=== PATIENT | female | born 1995 | race Caucasian/White ===

== ENCOUNTER 2018-02-21 13:30 | Emergency (ER) | payer MEDICAID ==
[2018-02-21 13:43] VITALS: BP 141/86
--- NOTE | 2018-02-21 14:25 | CR ---
Hand Comp Min 3V Rt CLINICAL HISTORY: Interval second finger FINDINGS: There is no acute fracture or dislocation of the hand. Articular surfaces are smooth. Impression: Negative
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
== END 2018-02-21 14:51 | disposition home or self-care (01) ==
LOC: JP.ED 13:30
DX: S60.221A Contusion of right hand, initial encounter (principal); Z77.22 Contact with and (suspected) exposure to environmental tobacco smoke (acute) (chronic); E03.9 Hypothyroidism, unspecified; F32.9 Major depressive disorder, single episode, unspecified; Z79.899 Other long term (current) drug therapy; W22.8XXA Striking against or struck by other objects, initial encounter
CPT/HCPCS: 73130-26-RT; 73130-RT; 99284

== ENCOUNTER 2020-07-07 15:46 | Emergency (ER) | payer SELFPAY ==
[2020-07-07 16:11] VITALS: BP 155/112; PULSE 118
--- NOTE | 2020-07-07 16:42 | EDM.PDOC ---
ED HPI GENERAL MEDICAL PROBLEM - General Chief Complaint: Flank Pain Stated Complaint: RIGHT SIDE PAIN Time Seen by Provider: 07/07/20 16:30 Source of Information: Reports: Patient, RN Notes Reviewed - History of Present Illness INITIAL COMMENTS - FREE TEXT/NARRATIVE: Patient presents to the ED with 2 day hx of progressive right flank pain, mild dysuria, denies barbara hematuria, fever, injury or trauma, pain mildly improved with Ibuprofen, worse with certain activities, strong ache in nature. No vomiting, drinking fluids well. Denies UTI/Pyelonephritis hx. Onset: Gradual Duration: Day(s): (2) Right Flank Pain Score (Numeric/FACES): 8 - Related Data Allergies Allergy/AdvReac Type Severity Reaction Status Date / Time No Known Allergies Allergy Verified 07/07/20 16:18 Home Meds: Home Meds Levothyroxine Sodium 112 mcg PO DAILY 10/27/15 [History] Albuterol [IMW: Albuterol HFA] 1 puff INH ASDIRECTED PRN 02/21/18 [History] Amitriptyline [Elavil] 25 mg PO DAILY 02/21/18 [History] lamoTRIgine [Lamotrigine] 150 mg PO DAILY 02/21/18 [History] Past Medical History Musculoskeletal History: Reports: Back Pain, Chronic Psychiatric History: Reports: Depression Endocrine/Metabolic History: Reports: Hypothyroidism - Past Surgical History Musculoskeletal Surgical History: Reports: Other (See Below) Other Musculoskeletal Surgeries/Procedures:: ankle fx Social & Family History - Tobacco Use Smoking Status *Q: Never Smoker - Caffeine Use Caffeine Use: Reports: Coffee ED ROS GENERAL - Review of Systems Review Of Systems: Comprehensive ROS is negative, except as noted in HPI. ED EXAM, RENAL/ - Physical Exam Exam: See Below Exam Limited By: No Limitations General Appearance: Alert, WD/WN, No Apparent Distress Throat/Mouth: Normal Inspection Head: Atraumatic Neck: Supple Respiratory/Chest: No Respiratory Distress, Lungs Clear, Normal Breath Sounds Cardiovascular: Regular Rate, Rhythm, Other (Heart rate 88 on my exam) GI/Abdominal: Normal Bowel Sounds, Soft, Tender (right CVA wrapping around to right upper quadrant) Back Exam: Normal Inspection, CVA Tenderness (R) Extremities: Normal Inspection Neurological: Alert, Oriented, CN II-XII Intact Psychiatric: Normal Affect Skin Exam: Warm, Dry, Intact Course - Vital Signs Last Recorded V/S: Last Vital Signs Temp 36.9 C 07/07/20 16:17 Pulse 118 H 07/07/20 16:17 Resp 18 07/07/20 16:17 BP 155/112 H 07/07/20 16:17 Pulse Ox 96 07/07/20 16:17 Rosi is a 25 year old female, presents with 2 day hx of right flank pain, please refer to HPI and focused exam. Patient's UA consistent with infection, likely pyelonephritis, patient tachycardic on arrival, this resolved with rest, afebrile, in no acute distress, well hydrated and non toxic appearing, there is microscopic hematuria so CT scan obtained to rule out stone and is negative. UC pending, Urine HCG negative (patient has Nexplanon). Will start patient on Omnicef pending culture. Instructed to stay well hydrated, return with any worsening symptoms. Patient agreeable to plan of care and discharged in stable condition. - Orders/Labs/Meds Orders: Active Orders 24 hr Category Date Time Status CULTURE URINE [RM] Stat Lab 07/07/20 16:58 Received Labs: Laboratory Tests 07/07/20 07/07/20 Range/Units 16:26 16:26 Urine Color Yellow (YELLOW) Urine Appearance Cloudy A (CLEAR) Urine pH 5.5 (5.0-8.0) Ur Specific [place] >= 1.030 (1.008-1.030) Urine Protein 100 H (NEGATIVE) mg/dL Urine Glucose (UA) Negative (NEGATIVE) mg/dL Urine Ketones Negative (NEGATIVE) mg/dL Urine Occult Blood Moderate H (NEGATIVE) Urine Nitrite Negative (NEGATIVE) Urine Bilirubin Negative (NEGATIVE) Urine Urobilinogen 0.2 (0.2-1.0) EU/dL Ur Leukocyte Esterase Small H (NEGATIVE) Urine RBC Semi-packed H (0-5) Urine WBC Packed H (0-5) Ur Epithelial Cells Many Amorphous Sediment Moderate Urine Bacteria Many Urine Mucus Few Urine HCG, Qual Negative Departure - Departure Time of Disposition: 18:00 Disposition: Home, Self-Care 01 Condition: Good Clinical Impression: UTI, Urinary tract infectious disease, Pyelonephritis - Discharge Information Instructions: Pyelonephritis, Adult, [id number] Referrals: PCP,None [Primary Care Provider] - Forms: ED Department Discharge Additional Instructions: Your CT scan was negative for a kidney stone. You have a kidney infection. Start the antibiotics I have prescribed this evening and take as directed. You can continue Ibuprofen for pain, up to 600 mg every 6 hours, which can be alternated with Tylenol 650 mg every 4 hours as needed. Make sure you are staying well hydrated. If you develop any worsening symptoms such as fever or nausea/vomiting/body aches, please return here. Sepsis Event Note (ED) - Evaluation Sepsis Screening Result: No Definite Risk - Focused Exam Vital Signs: Vital Signs Temp Pulse Resp BP Pulse Ox 07/07/20 16:17 36.9 C 118 H 18 155/112 H 96 07/07/20 16:09 36.9 C 118 H 18 155/112 H 96 - My Orders Last 24 Hours: My Active Orders 07/07/20 16:58 CULTURE URINE [RM] Stat - Assessment/Plan Last 24 Hours: My Active Orders 07/07/20 16:58 CULTURE URINE [RM] Stat
--- NOTE | 2020-07-07 17:42 | CRLCT ---
INDICATION: Right flank pain, hematuria TECHNIQUE: CT Abdomen and pelvis without i.v. contrast. Coronal and sagittal reformats were obtained. COMPARISON: None FINDINGS: Lower chest: Unremarkable. Liver: Unremarkable. Spleen: Unremarkable. Pancreas: Unremarkable. Gallbladder: Unremarkable. Kidney: Unremarkable. No kidney or ureteral stones or obstruction seen. Adrenal: Unremarkable. Bowel: Unremarkable. The appendix is normal in appearance and size. Vascular: Unremarkable. Lymph: Unremarkable. Peritoneum: Unremarkable. No pneumoperitoneum is seen. No significant ascites is noted. Pelvis: Unremarkable. Soft tissue: Unremarkable. Bone: Unremarkable for age. IMPRESSION: 1. Unremarkable with no CT correlate for the patient`s symptoms seen. Dictated by Neto Watson MD @ 07/07/2020 5:40:18 PM Please note that all CT scans at this facility use dose modulation, iterative reconstruction, and/or weight-based dosing when appropriate to reduce radiation dose to as low as reasonably achievable. Dictated by: Neto Watson MD @ 07/07/2020 17:40:40 (Electronically Signed)
== END 2020-07-07 18:54 | disposition home or self-care (01) ==
LOC: JP.ED 15:46
DX: N39.0 Urinary tract infection, site not specified (principal); N12 Tubulo-interstitial nephritis, not specified as acute or chronic; F32.9 Major depressive disorder, single episode, unspecified; E03.9 Hypothyroidism, unspecified; Z79.899 Other long term (current) drug therapy
CPT/HCPCS: 74176; 81001; 81025; 87086; 99284-25

== ENCOUNTER 2021-07-04 17:32 | Emergency (ER) | payer SELFPAY ==
[2021-07-04] MEDS ORDERED: Bacitracin Oint 1 GM U/D Packet TOP ONE (17:57)
[2021-07-04 18:05] VITALS: BP 141/67; PULSE 93
[2021-07-04] MEDS ORDERED: Diphtheria,Pertussis(Acell),Tetanus Vaccine 0.5 ML Syringe IM ONE (18:06)
--- NOTE | 2021-07-04 18:23 | EDM.PDOC ---
ED HPI GENERAL MEDICAL PROBLEM - General Chief Complaint: Bite:Animal, Insect Stated Complaint: DOG BITE Time Seen by Provider: 07/04/21 17:57 Source of Information: Reports: Patient History Limitations: Reports: No Limitations - History of Present Illness INITIAL COMMENTS - FREE TEXT/NARRATIVE: Rosi is a 26-year-old female presenting to the ED for evaluation of a dog bite to both hands that occurred when she was trying to separate 2 of her 3 dogs that were not enjoying each other's company. Her dogs are up-to-date on their vaccinations and she was last updated with her Tdap booster in 2017. Patient is complaining of some numbness in the right fifth finger which is alongside of a puncture wound over the distal interface between the fourth and fifth metacarpals. There is significant bruising and swelling on the dorsal hand. She also has a another puncture wound on the volar distal right wrist over the radius which is also in close proximity to the radial nerve. On the left hand she has 2 small superficial lacerations on the webbing between the thumb and the index finger that do not appear to have penetrated the dermis. She has intact range of motion of both the hands. Right Hand Pain Score (Numeric/FACES): 6 - Related Data Allergies Allergy/AdvReac Type Severity Reaction Status Date / Time No Known Allergies Allergy Verified 07/04/21 18:09 Home Meds: Home Meds NK [No Known Home Meds] 07/04/21 [History] Past Medical History HEENT History: Reports: Impaired Vision Genitourinary History: Reports: Pyelonephritis Musculoskeletal History: Reports: Back Pain, Chronic Psychiatric History: Reports: Depression Endocrine/Metabolic History: Reports: Hypothyroidism - Past Surgical History Musculoskeletal Surgical History: Reports: Other (See Below) Other Musculoskeletal Surgeries/Procedures:: ankle fx Social & Family History - Tobacco Use Tobacco Use Status *Q: Never Tobacco User - Caffeine Use Caffeine Use: Reports: Coffee, Soda, Tea - Recreational Drug Use Recreational Drug Use: No ED ROS GENERAL - Review of Systems Review Of Systems: See Below Constitutional: Reports: No Symptoms Musculoskeletal: Reports: Hand Pain Skin: Reports: Wound (Puncture wound on the dorsal right hand between the distal fourth and fifth metacarpals, on the volar right wrist over the radius and then superficial lacerations on the webbing of the left hand between the thumb and index finger.) Neurological: Reports: Numbness (Right fifth finger) ED EXAM, ANIMAL BITE - Physical Exam Exam: See Below Exam Limited By: No Limitations General Appearance: Alert, No Apparent Distress Extremities: Normal Range of Motion, Normal Capillary Refill, Other (0.6 cm puncture wound on the dorsal right hand between the distal fourth and fifth metacarpals, 0.6 cm puncture wound on the volar distal right wrist over the radius, 2 superficial lacerations on the webbing of the left hand between the thumb and index finger measuring a total of 0.2 cm.) Neurological: Alert, Oriented, Normal Cognition, No Motor/Sensory Deficits Skin Exam: Ecchymosis (Bruising around both puncture wounds. Swelling.) ED ANIMAL BITE PROCEDURES - Laceration/Wound Repair Right Hand Lac/Wound Length In cm: 0.6 Appearance: Subcutaneous Distal NVT: Neuro & Vascular Intact Anesthetic Type: Local Local Anesthesia - Lidocaine (Xylocaine): 1% Plain Local Anesthetic Volume: 2cc Skin Prep: Chlorhexidine (Hibiciens) Exploration/Debridement/Repair: Wound Explored, In a Bloodless Field, Explored to Base Closed With: Sutures Suture Size: 5-0 # of Sutures: 1 Suture Type: Nylon, Interrupted Sterile Dressing Applied: Nurse Tetanus Status Addressed: Yes Right Wrist Lac/Wound Length In cm: 0.6 Appearance: Subcutaneous Anesthetic Type: Local Local Anesthesia - Lidocaine (Xylocaine): 1% Plain Local Anesthetic Volume: 2cc Skin Prep: Chlorhexidine (Hibiciens) Exploration/Debridement/Repair: Wound Explored, In a Bloodless Field, Explored to Base Closed With: Sutures Suture Size: 5-0 # of Sutures: 2 Suture Type: Nylon, Interrupted Sterile Dressing Applied: Nurse Tetanus Status Addressed: Yes Complications: No Course - Vital Signs Last Recorded V/S: Last Vital Signs Temp 36.6 C 07/04/21 18:06 Pulse 93 07/04/21 18:06 Resp 18 07/04/21 18:06 BP 141/67 H 07/04/21 18:06 Pulse Ox 100 07/04/21 18:06 - Orders/Labs/Meds Meds: Medications Discontinued Medications Generic Name Dose Route Start Last Admin Trade Name Freq PRN Reason Stop Dose Admin Bacitracin 1 dose 07/04/21 17:57 Bacitracin Oint 1 Gm U/D Packet TOP 07/04/21 17:58 ONETIME ONE Diphtheria/Tetanus/Acell Pertussis 0.5 ml 07/04/21 18:06 07/04/21 18:51 Diphtheria,Pertussis(Acell),Tetanus Vaccine 0.5 Ml Syringe IM 07/04/21 18:07 Not Given .ONCE ONE Lidocaine HCl 5 ml 07/04/21 17:57 Lidocaine 1% 5 Ml Sdv INJECT 07/04/21 17:58 ONETIME ONE - Re-Assessments/Exams Free Text/Narrative Re-Assessment/Exam: 07/04/21 19:03 patient has 2 significant puncture wounds one in the dorsal right hand and the other on the volar right wrist. These uniformly become infected so we will put her on Augmentin 875 mg twice daily for 7 days. The sutures will need to be removed in 7 to 10 days. She may come to the clinic or ER to have these removed. We did discuss watching for signs of infection and if it becomes too bad she may need to have the sutures removed to allow the wounds to drain. Indications return to the ED were discussed. All questions were answered and she was discharged in satisfactory condition. Departure - Departure Time of Disposition: 19:04 Disposition: Home, Self-Care 01 Clinical Impression: Dog bite of right hand Qualifiers: Encounter type: initial encounter Qualified Code(s): S61.451A - Open bite of right hand, initial encounter; W54.0XXA - Bitten by dog, initial encounter Dog bite of right wrist Qualifiers: Encounter type: initial encounter Qualified Code(s): S61.551A - Open bite of right wrist, initial encounter; W54.0XXA - Bitten by dog, initial encounter - Discharge Information Instructions: Animal Bite, Adult, [id number] Referrals: PCP,None [Primary Care Provider] - Forms: ED Department Discharge Care Plan Goals: Because dog bites almost uniformly become infected, we are starting you on an antibiotic called Augmentin 875 mg twice daily for 7 days. The sutures placed will need to be removed in 7 to 10 days which can be done either at the clinic or here in the ER. This typically does not require an appointment to have them removed. Should you have significant drainage from the wounds, the sutures may need to be removed sooner to allow for proper drainage. Please let us know as we may need to adjust medications for the infection. These keep the wounds clean and dry for the next 24 hours until the scab forms. Sepsis Event Note (ED) - Evaluation Sepsis Screening Result: No Definite Risk - Focused Exam Vital Signs: Vital Signs Temp Pulse Resp BP Pulse Ox 07/04/21 18:06 36.6 C 93 18 141/67 H 100 07/04/21 18:03 36.6 C 93 18 141/67 H 100 - Problem List & Annotations (1) Dog bite of right hand SNOMED Code(s): 316654498 Code(s): S61.451A - OPEN BITE OF RIGHT HAND, INITIAL ENCOUNTER; W54.0XXA - BITTEN BY DOG, INITIAL ENCOUNTER Status: Acute Priority: Medium Current Visit: Yes Qualifiers: Encounter type: initial encounter Qualified Code(s): S61.451A - Open bite of right hand, initial encounter; W54.0XXA - Bitten by dog, initial encounter (2) Dog bite of right wrist SNOMED Code(s): 688799617 Code(s): S61.551A - OPEN BITE OF RIGHT WRIST, INITIAL ENCOUNTER; W54.0XXA - BITTEN BY DOG, INITIAL ENCOUNTER Status: Acute Priority: Medium Current Visit: Yes Qualifiers: Encounter type: initial encounter Qualified Code(s): S61.551A - Open bite of right wrist, initial encounter; W54.0XXA - Bitten by dog, initial encounter - Problem List Review Problem List Initiated/Reviewed/Updated: Yes
== END 2021-07-04 19:11 | disposition home or self-care (01) ==
LOC: JP.ED 17:32
DX: S60.572A Other superficial bite of hand of left hand, initial encounter (principal); S61.451A Open bite of right hand, initial encounter; W54.0XXA Bitten by dog, initial encounter
CPT/HCPCS: 12001; 99283-25

== ENCOUNTER 2021-07-16 15:55 | Emergency (ER) | payer SELFPAY ==
[2021-07-16 16:07] VITALS: BP 136/90; PULSE 80
--- NOTE | 2021-07-16 16:27 | EDM.PDOC ---
ED HPI GENERAL MEDICAL PROBLEM - General Chief Complaint: Upper Extremity Injury/Pain Stated Complaint: BIT BY DOG WEEK AND HALF AGO, PAIN IN WRIST Time Seen by Provider: 07/16/21 16:15 Source of Information: Reports: Patient, Old Records, RN History Limitations: Reports: No Limitations - History of Present Illness INITIAL COMMENTS - FREE TEXT/NARRATIVE: 26 yo female was seen here about a week and a half ago for dog bites of her hands/wrist areas bilaterally. She was cleaned and tx'd with Augmentin which she admits she didn't complete. Has not followed up in the clinic since the incident. Is here now asking for an X-ray of her R wrist. 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) (none) Right Wrist Pain Score (Numeric/FACES): 6 - Related Data Allergies Allergy/AdvReac Type Severity Reaction Status Date / Time mold Allergy Cannot Verified 07/16/21 16:09 Remember Home Meds: Home Meds NK [No Known Home Meds] 07/04/21 [History] Past Medical History HEENT History: Reports: Impaired Vision Genitourinary History: Reports: Pyelonephritis Musculoskeletal History: Reports: Back Pain, Chronic Psychiatric History: Reports: Depression Endocrine/Metabolic History: Reports: Hypothyroidism - Past Surgical History Musculoskeletal Surgical History: Reports: Other (See Below) Other Musculoskeletal Surgeries/Procedures:: ankle fx Social & Family History - Tobacco Use Tobacco Use Status *Q: Never Tobacco User - Caffeine Use Caffeine Use: Reports: Coffee, Tea - Recreational Drug Use Recreational Drug Use: No Review of Systems - Review of Systems Review Of Systems: See Below Constitutional: Reports: No Symptoms Musculoskeletal: Reports: Joint Pain (R wrist and proximal R thumb, more pain with wrist movement than thumb. ). Denies: Joint Swelling Skin: Reports: No Symptoms Neurological: Reports: No Symptoms ED EXAM, GENERAL - Physical Exam Exam: See Below Exam Limited By: No Limitations General Appearance: Alert, WD/WN, No Apparent Distress Eye Exam: Bilateral Eye: Normal Inspection Extremities: Normal Inspection, Normal Range of Motion, No Pedal Edema. No: Non-Tender, Pedal Edema, Limited Range of Motion (good ROM, but reports R wrist pain with this movement) Neurological: Alert, Oriented, CN II-XII Intact, Normal Cognition, No Motor/Sensory Deficits Psychiatric: Normal Affect, Normal Mood Skin Exam: Warm, Dry, Intact, Normal Color, No Rash, Other (wounds from 07/04 are fully healed. ). No: Ecchymosis, Erythema, Increased Warmth, Lymphangitis Course - Vital Signs Last Recorded V/S: Last Vital Signs Temp 36.3 C 07/16/21 16:08 Pulse 80 07/16/21 16:08 Resp 16 07/16/21 16:08 BP 136/90 07/16/21 16:08 Pulse Ox 98 07/16/21 16:08 - Orders/Labs/Meds Orders: Active Orders 24 hr Category Date Time Status Wrist 2V Rt [CR] Stat Exams 07/16/21 16:21 Stop Req - Radiology Interpretation Free Text/Narrative:: R wrist X-ray-neg Departure - Departure Time of Disposition: 16:40 Disposition: Home, Self-Care 01 Condition: Good Clinical Impression: Wrist pain, right - Discharge Information *PRESCRIPTION DRUG MONITORING PROGRAM REVIEWED*: No *COPY OF PRESCRIPTION DRUG MONITORING REPORT IN PATIENT DESTINY: No Instructions: Wrist Pain, Adult, [id number] Referrals: PCP,None [Primary Care Provider] - Forms: ED Department Discharge Additional Instructions: Take ibuprofen 400 mg every 6 hrs with food for pain relief as needed. Wear your splint for support when working with your hands. After another week spend time squeezing a tennis ball daily to strengthen your wrist. Sepsis Event Note (ED) - Evaluation Sepsis Screening Result: No Definite Risk - Focused Exam Vital Signs: Vital Signs Temp Pulse Resp BP Pulse Ox 07/16/21 16:08 36.3 C 80 16 136/90 98 07/16/21 16:05 36.3 C 80 16 136/90 98 - My Orders Last 24 Hours: My Active Orders 07/16/21 16:21 Wrist 2V Rt [CR] Stat - Assessment/Plan Last 24 Hours: My Active Orders 07/16/21 16:21 Wrist 2V Rt [CR] Stat
--- NOTE | 2021-07-17 09:27 | CR ---
Wrist 2V Rt CLINICAL HISTORY: Pain after dog bite FINDINGS: There is no acute fracture or dislocation within the right wrist. No foreign body seen Impression: Negative
== END 2021-07-16 16:50 | disposition home or self-care (01) ==
LOC: JP.ED 15:55
DX: M25.531 Pain in right wrist (principal); Z91.09 Other allergy status, other than to drugs and biological substances
CPT/HCPCS: 73100-26-RT; 73100-RT; 99283-25

== ENCOUNTER 2022-08-02 15:45 | Emergency (ER) | payer BC, OTHER | END 2022-08-02 18:25 | disposition home or self-care (01) | LOC: JP.ED 15:45 | DX: S63.91XA Sprain of unspecified part of right wrist and hand, initial encounter (principal); W23.0XXA Caught, crushed, jammed, or pinched between moving objects, initial encounter; Y99.0 Civilian activity done for income or pay | CPT/HCPCS: 73130-26-RT; 73130-RT; 99283 ==

== ENCOUNTER 2023-11-24 21:35 | Emergency (ER) | payer BC, OTHER ==
[2023-11-24] MEDS ORDERED: Sodium Chloride 0.9% 1,000 ML IV ONE (23:43)
[2023-11-24] MEDS ORDERED: Ondansetron 4 MG/2 ML SDV IVPUSH ONE (23:43)
[2023-11-25 00:01] LABS: BASOPHILS ABSOLUTE AUTO 0.02 K/uL (0.00-0.10); BASOPHILS PERCENT AUTO 0.2 % (0.1-1.3); EOSINOPHILS ABSOLUTE AUTO 0.01 K/uL (0.00-0.40); EOSINOPHILS PERCENT AUTO 0.1 % (0.0-5.4); HEMATOCRIT 43.7 % (34.3-46.0); HEMOGLOBIN 14.5 g/dL (11.2-15.5); IMMATURE GRAN ABSOLUTE AUTO 0.04 K/uL (0.00-0.23); IMMATURE GRAN PERCENT AUTO 0.4 % (0.0-0.7); LYMPHOCYTES ABSOLUTE AUTO 0.75 K/uL (0.8-3.3); LYMPHOCYTES PERCENT AUTO 7.6 % (11.4-47.7); MEAN CORPUSCULAR HEMOGLOBIN 30.3 pg (31.6-35.5); MEAN CORPUSCULAR HGB CONC 33.2 g/dL (31.6-35.5); MEAN CORPUSCULAR VOLUME 91.4 fL (81.4-99.0); MONOCYTES ABSOLUTE AUTO 0.47 K/uL (0.20-0.90); MONOCYTES PERCENT AUTO 4.7 % (3.3-12.6); NEUTROPHILS ABSOLUTE AUTO 8.61 K/uL (1.0-7.6); PLATELET COUNT,PLT 274 K/uL (130-375); RED BLOOD CELL COUNT 4.78 M/uL (3.77-5.24); WHITE BLOOD CELL COUNT,WBC 9.9 K/uL (3.2-11.0)
[2023-11-25 00:22] LABS: ALANINE AMINOTRANSFERASE,ALT 52 U/L (12-78); ALBUMIN 3.8 g/dL (3.4-5.0); ALKALINE PHOSPHATASE 82 U/L (46-116); ANION GAP 11.8 mmol/L (5.0-14.0); ASPARTATE AMNIOTRANSFERASE,AST 30 U/L (15-37); BILIRUBIN TOTAL 0.3 mg/dL (0.2-1.0); BLOOD UREA NITROGEN,BUN 14 mg/dL (7-18); CALCIUM 8.3 mg/dL (8.5-10.1); CARBON DIOXIDE,CO2 29 mmol/L (21-32); CHLORIDE,CL 101 mmol/L (100-108); CREATININE 0.8 mg/dL (0.6-1.0); ESTIMATED GFR 103 mL/min (>60); GLUCOSE RANDOM 101 mg/dL (74-106); POTASSIUM,K 3.8 mmol/L (3.6-5.2); PROTEIN TOTAL,TP 7.8 g/dL (6.4-8.2); SODIUM,NA 138 mmol/L (140-148)
[2023-11-25 00:26] LABS: CORONAVIRUS COVID-19 NAA NEGATIVE (NEGATIVE); INFLUENZA A NAA NEGATIVE (NEGATIVE); INFLUENZA B NAA NEGATIVE (NEGATIVE); RESPIRATORY SYNCYTIAL VIR NAA NEGATIVE (NEGATIVE)
[2023-11-25] MEDS ORDERED: Sodium Chloride 0.9% 1,000 ML IV ONE (01:13)
[2023-11-25 02:20] VITALS: BP 147/87; PULSE 97
== END 2023-11-25 02:41 | disposition home or self-care (01) ==
LOC: JP.ED 21:35
DX: B34.9 Viral infection, unspecified (principal); E03.9 Hypothyroidism, unspecified; Z86.16 Personal history of COVID-19; Z79.899 Other long term (current) drug therapy; Z91.048 Other nonmedicinal substance allergy status
CPT/HCPCS: 0241U; 36415; 80053; 85025; 96361; 96374; 99284; J2405; J7030

== ENCOUNTER 2024-04-05 15:36 | Emergency (ER) | payer OTHER ==
[2024-04-05 15:54] VITALS: BP 128/97; PULSE 108
[2024-04-05 16:17] LABS: APPEARANCE,URINE CLOUDY (CLEAR); BILIRUBIN,URINE SMALL (NEGATIVE); COLOR,URINE YELLOW (YELLOW); GLUCOSE,URINE NEGATIVE (NEGATIVE); KETONES,URINE 40 mg/dL (NEGATIVE); LEUKOCYTE ESTERASE,URINE TRACE (NEGATIVE); NITRITE,URINE NEGATIVE (NEGATIVE); OCCULT BLOOD,URINE NEGATIVE (NEGATIVE); PROTEIN,URINE 30 mg/dL (NEGATIVE); UROBILINOGEN,URINE 0.2 EU/dL (0.2-1.0)
[2024-04-05 16:28] LABS: AMORPHOUS SEDIMENT,URINE NOT SEEN; BACTERIA,URINE MODERATE; EPITHELIAL CELLS,URINE MANY; MUCUS,URINE NOT SEEN; RBC,URINE 0-5 (0-5)
[2024-04-05 16:53] LABS: BASOPHILS ABSOLUTE AUTO 0.05 K/uL (0.00-0.10); BASOPHILS PERCENT AUTO 0.7 % (0.1-1.3); EOSINOPHILS ABSOLUTE AUTO 0.04 K/uL (0.00-0.40); EOSINOPHILS PERCENT AUTO 0.5 % (0.0-5.4); HEMATOCRIT 46.9 % (34.3-46.0); IMMATURE GRAN ABSOLUTE AUTO 0.01 K/uL (0.00-0.23); IMMATURE GRAN PERCENT AUTO 0.1 % (0.0-0.7); LYMPHOCYTES ABSOLUTE AUTO 2.65 K/uL (0.8-3.3); LYMPHOCYTES PERCENT AUTO 34.6 % (11.4-47.7); MEAN CORPUSCULAR HEMOGLOBIN 30.4 pg (31.6-35.5); MEAN CORPUSCULAR HGB CONC 34.1 g/dL (31.6-35.5); MEAN CORPUSCULAR VOLUME 89.2 fL (81.4-99.0); MONOCYTES ABSOLUTE AUTO 0.86 K/uL (0.20-0.90); MONOCYTES PERCENT AUTO 11.2 % (3.3-12.6); NEUTROPHILS ABSOLUTE AUTO 4.06 K/uL (1.0-7.6); NEUTROPHILS PERCENT AUTO 52.9 % (40.0-78.1); PLATELET COUNT,PLT 297 K/uL (130-375); RED BLOOD CELL COUNT 5.26 M/uL (3.77-5.24); WHITE BLOOD CELL COUNT,WBC 7.7 K/uL (3.2-11.0)
[2024-04-05] MEDS: Ibuprofen 400 MG Tab PO ONE (17:01)
[2024-04-05] MEDS: Doxycycline 100 MG Cap PO ONE (17:01)
[2024-04-05] MEDS: Ondansetron 4 MG Tab.DIS PO ONE (17:01)
[2024-04-05 17:14] LABS: A/G RATIO 0.9 (1.2-2.2); ALANINE AMINOTRANSFERASE,ALT 63 U/L (12-78); ALBUMIN 4.2 g/dL (3.4-5.0); ALKALINE PHOSPHATASE 103 U/L (46-116); ASPARTATE AMNIOTRANSFERASE,AST 33 U/L (15-37); BILIRUBIN TOTAL 0.5 mg/dL (0.2-1.0); BLOOD UREA NITROGEN,BUN 9 mg/dL (7-18); CALCIUM 9.9 mg/dL (8.5-10.1); CARBON DIOXIDE,CO2 28 mmol/L (21-32); CHLORIDE,CL 102 mmol/L (100-108); CREATININE 0.9 mg/dL (0.6-1.0); EST CRCL DRUG DOSING (CG) 81.32 mL/min; ESTIMATED GFR 89 mL/min (>60); GLUCOSE RANDOM 90 mg/dL (74-106); POTASSIUM,K 5.1 mmol/L (3.6-5.2); SODIUM,NA 139 mmol/L (140-148)
[2024-04-05 17:28] LABS: ANION GAP 14.1 mmol/L (5.0-14.0)
[2024-04-05 17:42] LABS: LYME AB IgG Negative (Negative)
[2024-04-05 17:52] LABS: LYME AB IgM Negative (Negative)
== END 2024-04-05 18:20 | disposition home or self-care (01) ==
LOC: JP.ED 15:36
DX: R11.2 Nausea with vomiting, unspecified (principal); Z91.048 Other nonmedicinal substance allergy status; R51.9 Headache, unspecified; R82.71 Bacteriuria; R82.81 Pyuria; Z79.899 Other long term (current) drug therapy; Z86.16 Personal history of COVID-19
CPT/HCPCS: 80053; 81001; 81025; 85025; 86140; 86618; 87086; 99284; A9270; Q0162

== ENCOUNTER 2024-04-17 16:04 | Emergency (ER) | payer OTHER ==
[2024-04-17] MEDS ORDERED: Sodium Chloride 0.9% 10 ML Syringe FLUSH PRN (16:37)
[2024-04-17 16:48] LABS: BASOPHILS ABSOLUTE AUTO 0.05 K/uL (0.00-0.10); BASOPHILS PERCENT AUTO 0.8 % (0.1-1.3); EOSINOPHILS ABSOLUTE AUTO 0.08 K/uL (0.00-0.40); EOSINOPHILS PERCENT AUTO 1.3 % (0.0-5.4); HEMATOCRIT 41.8 % (34.3-46.0); HEMOGLOBIN 14.2 g/dL (11.2-15.5); IMMATURE GRAN PERCENT AUTO 0.2 % (0.0-0.7); LYMPHOCYTES ABSOLUTE AUTO 2.41 K/uL (0.8-3.3); LYMPHOCYTES PERCENT AUTO 39.8 % (11.4-47.7); MEAN CORPUSCULAR HEMOGLOBIN 30.7 pg (31.6-35.5); MEAN CORPUSCULAR VOLUME 90.3 fL (81.4-99.0); MONOCYTES ABSOLUTE AUTO 0.73 K/uL (0.20-0.90); NEUTROPHILS ABSOLUTE AUTO 2.78 K/uL (1.0-7.6); NEUTROPHILS PERCENT AUTO 45.9 % (40.0-78.1); PLATELET COUNT,PLT 270 K/uL (130-375); RED BLOOD CELL COUNT 4.63 M/uL (3.77-5.24); WHITE BLOOD CELL COUNT,WBC 6.1 K/uL (3.2-11.0)
[2024-04-17 16:56] LABS: IMMATURE GRAN ABSOLUTE AUTO 0.01 K/uL (0.00-0.23)
[2024-04-17 17:09] LABS: A/G RATIO 0.8 (1.2-2.2); ALANINE AMINOTRANSFERASE,ALT 59 U/L (12-78); ALBUMIN 3.6 g/dL (3.4-5.0); ALKALINE PHOSPHATASE 90 U/L (46-116); ANION GAP 5.4 mmol/L (5.0-14.0); ASPARTATE AMNIOTRANSFERASE,AST 36 U/L (15-37); BILIRUBIN TOTAL 0.3 mg/dL (0.2-1.0); BLOOD UREA NITROGEN,BUN 9 mg/dL (7-18); CALCIUM 9.3 mg/dL (8.5-10.1); CARBON DIOXIDE,CO2 31 mmol/L (21-32); CHLORIDE,CL 104 mmol/L (100-108); EST CRCL DRUG DOSING (CG) 68.67 mL/min; ESTIMATED GFR 78 mL/min (>60); GLUCOSE RANDOM 90 mg/dL (74-106); POTASSIUM,K 4.9 mmol/L (3.6-5.2); PROTEIN TOTAL,TP 7.9 g/dL (6.4-8.2); SODIUM,NA 140 mmol/L (140-148)
[2024-04-17 17:10] LABS: C-REACTIVE PROTEIN < 0.50 mg/dL (<0.50)
[2024-04-17 17:15] VITALS: BP 133/101; PULSE 64
[2024-04-17 18:12] LABS: APPEARANCE,URINE SLIGHTLY CLOUDY (CLEAR); BILIRUBIN,URINE NEGATIVE (NEGATIVE); COLOR,URINE YELLOW (YELLOW); GLUCOSE,URINE NEGATIVE (NEGATIVE); KETONES,URINE TRACE mg/dL (NEGATIVE); LEUKOCYTE ESTERASE,URINE NEGATIVE (NEGATIVE); NITRITE,URINE NEGATIVE (NEGATIVE); OCCULT BLOOD,URINE NEGATIVE (NEGATIVE); PROTEIN,URINE NEGATIVE (NEGATIVE); UROBILINOGEN,URINE 0.2 EU/dL (0.2-1.0)
[2024-04-17 18:16] LABS: AMORPHOUS SEDIMENT,URINE NOT SEEN; BACTERIA,URINE MANY; EPITHELIAL CELLS,URINE MANY; MUCUS,URINE NOT SEEN; RBC,URINE 0-5 (0-5); WBC,URINE 0-5 (0-5)
== END 2024-04-17 18:55 | disposition home or self-care (01) ==
LOC: JP.ED 16:04
DX: R10.11 Right upper quadrant pain (principal); R10.30 Lower abdominal pain, unspecified; E03.9 Hypothyroidism, unspecified; Z86.16 Personal history of COVID-19; Z79.890 Hormone replacement therapy; Z91.048 Other nonmedicinal substance allergy status
CPT/HCPCS: 36415; 76705; 76705-26; 80053; 81001; 81025; 83690; 85025; 86140; 99284

== ENCOUNTER 2025-03-03 10:03 | Emergency (ER) | payer OTHER ==
[2025-03-03 10:35] VITALS: BP 157/101; PULSE 87
== END 2025-03-03 11:50 | disposition home or self-care (01) ==
LOC: JP.ED 10:03
DX: S49.91XA Unspecified injury of right shoulder and upper arm, initial encounter (principal); J45.909 Unspecified asthma, uncomplicated; E03.9 Hypothyroidism, unspecified; Z91.048 Other nonmedicinal substance allergy status; Z79.51 Long term (current) use of inhaled steroids; Z79.890 Hormone replacement therapy; W19.XXXA Unspecified fall, initial encounter; Y92.019 Unspecified place in single-family (private) house as the place of occurrence of the external cause
CPT/HCPCS: 73030-26-RT; 73030-RT; 99282; 99283-25